=== PATIENT | male | born 1950 | race African-American/Black ===

== ENCOUNTER 2018-08-16 20:36 | Emergency (ER) | payer MEDICARE, MEDICAID ==
[~2018-08-16] VITALS: Ht 175.3 cm; Wt 82.0 kg
[2018-08-16] MEDS ORDERED: AMLO10TA6 PO (20:56)
[2018-08-16] MEDS ORDERED: SODIUM CHLORIDE FLUSH 10ML SYR IVF ONE (21:00)
[2018-08-16] MEDS ORDERED: PLEASE ENTER HEIGHT AND WEIGHT MC SCH (21:00)
[2018-08-16] MEDS ORDERED: ONDANSETRON 2MG/ML, 2ML IVPush ONE (21:00)
[2018-08-16] MEDS ORDERED: PLEASE ENTER ALLERGIES MC SCH (21:00)
[2018-08-16 21:10] LABS: BASOPHILS % (AUTO) 0 % (0-1); EOSINOPHILS # (AUTO) 0.01 x10^3/uL (0-0.4); EOSINOPHILS % (AUTO) 0 % (1-7); LYMPHOCYTES % (AUTO) 9 % (22-44); MD NO; MEAN CORPUSCULAR HEMOGLOBIN 27.2 pg (27.5-34.5); MEAN CORPUSCULAR HGB CONC 33.6 g/dL (33.2-36.2); MEAN PLATELET VOLUME 8.9 fL (7.4-10.4); MONOCYTES # (AUTO) 0.38 x10^3/uL (0.2-0.8); MONOCYTES % (AUTO) 7 % (2-9); NEUTROPHILS # (AUTO) 4.61 x10^3/uL (1.8-6.8); NEUTROPHILS % (AUTO) 84 % (42-75); PLATELET COUNT 216 x10^3/uL (130-400); RED BLOOD COUNT 4.95 x10^6/uL (4.38-5.82); RED CELL DISTRIBUTION WIDTH 16.1 % (9.4-14.8)
[2018-08-16] MEDS ORDERED: ONDANSETRON 2MG/ML, 2ML ONE (21:15)
[2018-08-16] MEDS ORDERED: MORPHINE SULFATE 4 MG/ML, 1ML ONE ×2 (21:16→22:12)
[2018-08-16 21:24] LABS: ALBUMIN 3.7 g/dL (3.4-5.0); ANION GAP 9 mmol/L (5-15); CALCIUM 8.5 mg/dL (8.5-10.1); CHLORIDE 109 mmol/L (98-107)
[2018-08-16 21:29] LABS: ALANINE AMINOTRANSFERASE 89 U/L (12-78); ALKALINE PHOSPHATASE 53 U/L (45-117); BILIRUBIN,TOTAL 0.6 mg/dL (0.2-1.0); CREATININE 1.41 mg/dL (0.7-1.3)
[2018-08-16] MEDS: MORPHINE SULFATE 4 MG/ML, 1ML IVPush PRN ×2 (21:35→22:17)
[2018-08-16 21:52] LABS: CULTURE INDICATED? NO; MICROSCOPIC NOT IND
[2018-08-16] MEDS ORDERED: OMNIPAQUE 350 MG/ML, 100ML BOTTLE ONE (22:05)
[2018-08-16] MEDS ORDERED: GALA8TAB PO (22:09)
[2018-08-16] MEDS ORDERED: CLON0.2T PO (22:09)
[2018-08-16] MEDS ORDERED: PROB500T22 PO (22:09)
[2018-08-16] MEDS ORDERED: RANI150C PO (22:09)
[2018-08-16] MEDS ORDERED: FENO145T30 PO (22:09)
[2018-08-16 22:43] VITALS: BP 162/79
== END 2018-08-16 23:22 | disposition home or self-care (01) ==
LOC: ED 23:20
DX: R53.1 Weakness (principal); R10.9 Unspecified abdominal pain; R51 Headache; Z72.9 Problem related to lifestyle, unspecified; Z59.0 Homelessness; W19.XXXA Unspecified fall, initial encounter; Y93.89 Activity, other specified; Y92.89 Other specified places as the place of occurrence of the external cause; Y99.8 Other external cause status
CPT/HCPCS: 36415; 70450; 74177; 80053; 81003; 83690; 85025; 93005; 96374; 96375; 96376; 99284; J2405; Q9967